=== PATIENT | female | born 1990 | race Caucasian/White ===

== ENCOUNTER 2023-05-26 14:13 | Emergency (ER) | payer OTHER, SELFPAY ==
--- NOTE | ~2023-05-26 | XR_ITS ---
EXAMINATION: XR CHEST CLINICAL INFORMATION: Cough and shortness of breath COMPARISON: None available. TECHNIQUE: 2 views of the chest were obtained. FINDINGS: The cardiac and mediastinal contours are normal. The lungs are well inflated. There are increased markings in the right upper lobe overlying the anterior third rib questionable for small infiltrate. The lungs are otherwise clear. No pleural effusion or pneumothorax. Bony structures are unremarkable. XR/XR chest 2V IMPRESSION: Question small right upper lobe infiltrate.
[2023-05-26 14:39] VITALS: BP 104/66; PULSE 71; RESP 17; TEMP 36.1; O2SAT 98; BMI 22.4
--- NOTE | 2023-05-26 14:40 | ED.URI ---
HPI - URI/Sore Throat General Chief Complaint: Upper Respiratory Symptoms Stated Complaint: coughing up phlem Time Seen by Provider: 05/26/23 15:47 Source: patient Mode of arrival: ambulatory Limitations: no limitations History of Present Illness HPI Narrative: Patient is a 32-year-old female presenting to the emergency department with ongoing cough productive of yellow sputum for the past month. Patient reports only symptoms since onset has been the cough. Denies any nasal congestion, sore throat, ear pain at onset. Denies any fevers throughout the course of illness. Denies any chest pain or shortness of breath. Denies abdominal pain, nausea, vomiting, diarrhea. Denies any other sick contacts. Patient does report vaping on a regular basis. MD elicited complaint: cough Onset (ago): week(s) Consistency: constant Description of mucous: yellow Able to tolerate fluids by mouth: Yes Exacerbating factors: nothing Relieving factors: nothing Associated symptoms: denies other symptoms Treatments prior to arrival: none Related Data Previous Rx's Medication Instructions Recorded amoxicillin 500 mg capsule 1,000 mg PO TID #15 caps 05/26/23 Allergies Allergy/AdvReac Type Severity Reaction Status Date / Time No Known Allergies Allergy Verified 05/26/23 14:44 Review of Systems Review of Systems: As per HPI. Yes all other systems are reviewed and are negative Constitutional: Constitutional: Reports as per HPI [facility] Social History Social History Advance Directives: No Advance Directives Information Provided: No Physical Exam Vital Signs: Vital Signs: Last Vital Signs Temp 97.0 F 05/26/23 14:39 Pulse 71 05/26/23 14:39 Resp 17 05/26/23 14:39 BP 104/66 05/26/23 14:39 Pulse Ox 98 05/26/23 14:39 O2 Del Method Room Air 05/26/23 14:39 BMI result Body Mass Index 22.4 Vital signs have been reviewed and appear to be correct. Blood pressure normal. Heart rate normal. Respiratory rate normal. Temperature normal. Oxygen saturation normal. Const: General: cooperative, healthy appearing and no acute distress Orientation/consciousness: oriented to person, oriented to place, oriented to time and patient oriented x3 Limitations: no limitations HEENT: Head: Yes normocephalic and Yes atraumatic Ears: external ears normal General nose exam: Normal external nose present Face and sinus: Yes face symmetric Mouth: oropharynx normal and moist mucous membranes Throat: Yes uvula midline Eyes: Pupils: Equal, round and reactive pupils present Neck: Neck: Yes normal visual inspection and Yes supple Resp: Effort & Inspection: normal respiratory effort and able to speak in complete sentences Auscultation: wheezes (Very mild inspiratory and expiratory wheezing RUL, otherwise CTA) right upper Cardio: Rate: regular rate Rhythm: regular rhythm Heart sounds: S1 normal heart sound present and S2 normal heart sound present GI: Palpation (GI): Soft to palpation and nontender Auscultation: normoactive bowel sounds : General: Yes no CVA tenderness Back/Spine/Pelvis: Back: no CVA tenderness Skin: General skin exam: elasticity normal and turgor normal Neuro: General: oriented to person, oriented to place, oriented to time, patient oriented x3, moves all extremities, no focal motor deficits and CN's II-XI intact bilaterally Cranial nerves: Yes Equal, round and reactive pupils present Cognition (Neuro): normal cognition Extrem: General: Yes full ROM, Yes no pedal edema and Yes no calf tenderness Psych: Mental Status: mental status grossly normal Affect: normal affect Thought process: Normal thought process present Course Course Course Narrative: This is an RME: Additional HPI, ROS, PE not included below will be deferred to primary provider. Reports productive cough with brown phlegm x1 month, tobacco usage; vape, and a foul taste to her mouth. Denies fevers, chills, chest pain, shortness of breath. Rhonchi bilateral lower lobes Plan: CXR, placed in WR pending bed availability Medical Decision Making Medical Decision Making MDM Narrative: Patient is a 32-year-old female presenting to the emergency department with ongoing cough productive of yellow sputum for the past month. On exam patient is awake, A+Ox3, VS WNL, afebrile, normal neurological exam without focal deficits, very mild inspiratory and expiratory wheezing right upper lobe, otherwise clear to auscultation. Given reported symptoms and physical exam findings, initial differential includes bronchitis, pneumonia, viral illness. Unlikely CHF, PE, pneumothorax. X-ray notable for RUL infiltrate. My interpretation is in agreement with the radiologist's interpretation. Given that patient is afebrile and hemodynamically stable, feel patient is stable for discharge home at this time. Prescribed amoxicillin. Instructed patient to follow-up with PCP as she will require follow-up x-ray. Return precautions discussed at bedside. Patient verbalized understanding of and agreement with plan. Differential Diagnosis Differential Diagnoses: The differential diagnosis associated with the presentation includes As per MDM. Admission/Observation Consideration of admission/observation: Escalation of care including admission/observation considered Independent Interpretation I performed an independent interpretation of an: Plain X-Ray Interpretation: small RUL infiltrate Radiology Impression Discussion of test interpretation with radiology: I have reviewed the radiologist's reading. Radiologist Impression: FINDINGS: The cardiac and mediastinal contours are normal. The lungs are well inflated. There are increased markings in the right upper lobe overlying the anterior third rib questionable for small infiltrate. The lungs are otherwise clear. No pleural effusion or pneumothorax. Bony structures are unremarkable. XR/XR chest 2V IMPRESSION: Question small right upper lobe infiltrate. External Record Review External record reviewed: Inpatient record, Office record and Outpatient record Prescription Management I considered prescription management with: Antibiotic Discharge Plan Discharge Clinical Impression: Right upper lobe pneumonia Patient Disposition: Home, Self-Care Instructions: Community Acquired Pneumonia (DC) Additional Instructions: You were evaluated in the emergency department today for cough. Your chest x-ray showed evidence of a right upper lobe pneumonia. You are being prescribed antibiotics, please complete the full course as prescribed. You will need to contact your PCP for a follow up appointment as you will need a repeat chest x-ray in 4-6 weeks. Return to the emergency department if you experience worsening cough, fever 100.4? F or greater, recurrent vomiting, chest pain, shortness of breath, or any other concerning symptoms. Prescriptions: New amoxicillin 500 mg capsule 1,000 mg PO TID Qty: 15 0RF
[2023-05-26 18:14] VITALS: BP 109/57; PULSE 59; RESP 16; TEMP 36.1; O2SAT 96
== END 2023-05-26 18:18 | disposition home or self-care (01) ==
PROVIDERS: Emergency Provider Emergency Medicine
DX: J18.1 Lobar pneumonia, unspecified organism (principal); R05.9 Cough, unspecified; F17.290 Nicotine dependence, other tobacco product, uncomplicated
CPT/HCPCS: 71046; 99282; 99283